=== PATIENT | female | born 1950 | race Caucasian/White ===

== ENCOUNTER 2020-10-17 18:03 | Inpatient (IN) | payer MEDICARE ==
[~2020-10-17] VITALS: Ht 160 cm; Wt 108.2 kg
[2020-10-17 18:57] LABS: BASO % 0.4 % (0.0-2.0); EOS # 0.2 (0.0-0.7); EOS % 1.8 % (0-4.0); GRAN # 7.4 (1.4-6.5); GRAN % 66.1 % (42.2-75.2); HEMOGLOBIN 10.8 g/dl (12.5-16.0); LYMPH # 2.5 (1.2-3.4); LYMPH % 22.3 % (20.0-51.0); MEAN CELL VOLUME 83 fl (80.0-100.0); MEAN CORPUSCULAR HEMOGLOBIN 25 pg (27.0-31.0); MEAN CORPUSCULAR HGB CONC 30 g/dl (33.0-37.0); MEAN PLATELET VOLUME 10.6 fl (7.4-10.4); MONO # 0.9 (0.1-0.6); MONO % 8.1 % (1.7-9.3); PLATELET COUNT 208 K/mm3 (130-400); RED BLOOD COUNT 4.32 M/mm3 (4.10-5.30); REDCELL DISTRIBUTION WIDTH-CV 17.6 % (11.5-14.5)
[2020-10-17 18:58] LABS: HEMATOCRIT 35.9 % (37.0-47.0)
[2020-10-17 19:04] LABS: ALBUMIN 3.7 gm/dL (3.5-5.0); BILIRUBIN,TOTAL 0.5 mg/dL (0.0-1.0); CALCIUM 9.1 mg/dL (8.4-10.2); CREATININE, serum 0.84 (0.52-1.25); POTASSIUM 4.1 mmol/L (3.4-5.0); TOTAL PROTEIN 6.5 gm/dL (6.4-8.2)
[2020-10-17] MEDS ORDERED: PROTONIX 40MG T40 MG PO (23:39)
[2020-10-17] MEDS ORDERED: TENORMIN 2525 MG/TAB PO (23:40)
[2020-10-17] MEDS ORDERED: GLUCOPHAGE500 MG/TAB PO (23:40)
[2020-10-18] VITALS (7 sets, daily range): BP systolic 104–138; BP diastolic 51–86; PULSE 67–75; TEMP 98.1–99.1
[2020-10-18] MEDS ORDERED: PRINIVIL10 MG PO (01:47)
--- NOTE | 2020-10-18 03:21 | NUR ---
Patient arrived medical floor room 307 around midnight from ER via wheelchair. Patient is emirati speaking and doesn't understand or speak Vietnamese. Patient A/Ox4. Patient denies chest pain, abdominal pain, SOB, headache, or diarrhea. Patient currently on oxygen 2L via NC. VS stable. Patient reports feeling nauseous and a little dizzy. PRN Zofran given per MAR. Oriented patient to the room. Covid PCR swab done and sent to lab. IVF started per APR. All scheduled meds given per APR. Call light in reach. Will continue to monitor.
[2020-10-18 03:26] LABS: PARTIAL THROMBOPLASTIN TIME > 400.0 SECONDS (26.0-37.0)
[2020-10-18 08:11] LABS: BASO % 0.4 % (0.0-2.0); EOS # 0.2 (0.0-0.7); EOS % 2.1 % (0-4.0); GRAN # 6.5 (1.4-6.5); GRAN % 67.3 % (42.2-75.2); LYMPH # 2.2 (1.2-3.4); LYMPH % 22.4 % (20.0-51.0); MEAN CORPUSCULAR HEMOGLOBIN 25 pg (27.0-31.0); MEAN CORPUSCULAR HGB CONC 28 g/dl (33.0-37.0); MEAN PLATELET VOLUME 10.8 fl (7.4-10.4); MONO # 0.7 (0.1-0.6); MONO % 6.7 % (1.7-9.3); PLATELET COUNT 161 K/mm3 (130-400); RED BLOOD COUNT 3.99 M/mm3 (4.10-5.30); REDCELL DISTRIBUTION WIDTH-CV 17.7 % (11.5-14.5)
[2020-10-18 08:29] LABS: CALCIUM 8.7 mg/dL (8.4-10.2); CREATININE, serum 0.72 (0.52-1.25)
[2020-10-18 08:39] LABS: TROPONIN-I 6 HR POST INITIAL 0.021 ng/mL (0.000-0.034)
[2020-10-18 08:49] LABS: HEMATOCRIT 35.5 % (37.0-47.0); MEAN CELL VOLUME 89 fl (80.0-100.0)
--- NOTE | 2020-10-18 10:44 | NUR ---
PT TRANSPORTED TO CT BY [facility] [employer]. STAFF AT 1030 VIA WHEELCHAIR.
--- NOTE | 2020-10-18 12:18 | NUR ---
PT BACK TO MEDICAL FLOOR FROM CT AT APPROXIMATELY 1100. HEP GTT INFUSING AT 22ML/HR TO RIGHT HAND IV, N/S INFUSING AT 75ML/HR.
--- NOTE | 2020-10-18 12:41 | NUR ---
Sw tried to call pt via phone due to covid area. Pt did not answer. Sw to try back later. Pt does not speak american that I read on notes???
--- NOTE | 2020-10-18 18:36 | NUR ---
PT REMAINS A/0X4, VSS, PT HEP GTT INFUSING AT 22ML/HR, HEPXA LEVEL PENDING FOR FURTHER ADJUSTMENT. PT 02 2L NC, THIS NURSE REVIEWED POC WITH PT. PT VERBALIZES UNDERSTANDING. ALL NEEDS MET. CALL LIGHT WITHIN REACH.
[2020-10-19 03:11] LABS: PARTIAL THROMBOPLASTIN TIME 82.9 SECONDS (26.0-37.0)
[2020-10-19 04:59] VITALS: BP 129/58; PULSE 71; TEMP 97.5
[2020-10-19 08:08] VITALS: BP 135/51; PULSE 70; TEMP 98.5
[2020-10-19 08:28] LABS: BASO % 0.3 % (0.0-2.0); EOS # 0.2 (0.0-0.7); EOS % 2.8 % (0-4.0); GRAN % 53.5 % (42.2-75.2); LYMPH # 2.6 (1.2-3.4); LYMPH % 34.5 % (20.0-51.0); MEAN CELL VOLUME 87 fl (80.0-100.0); MEAN CORPUSCULAR HGB CONC 29 g/dl (33.0-37.0); MEAN PLATELET VOLUME 11.1 fl (7.4-10.4); MONO # 0.6 (0.1-0.6); MONO % 7.7 % (1.7-9.3); PLATELET COUNT 147 K/mm3 (130-400); RED BLOOD COUNT 3.74 M/mm3 (4.10-5.30); REDCELL DISTRIBUTION WIDTH-CV 17.7 % (11.5-14.5)
[2020-10-19 08:35] LABS: HEMATOCRIT 32.4 % (37.0-47.0); HEMOGLOBIN 9.4 g/dl (12.5-16.0); MEAN CORPUSCULAR HEMOGLOBIN 25 pg (27.0-31.0)
[2020-10-19 08:37] LABS: CALCIUM 8.2 mg/dL (8.4-10.2); CREATININE, serum 0.68 (0.52-1.25); POTASSIUM 3.7 mmol/L (3.4-5.0)
[2020-10-19 11:50] VITALS: BP 104/47; PULSE 67; TEMP 98.3
--- NOTE | 2020-10-19 11:56 | NUR ---
PT HEP GTT INFUSION INCREASED 2.5ML/HR. HEP GTT INFUSING AT 22.5ML/HR TO LEFT FA INT. BOLUS ADMINISTERED ORDERED. CALL LIGHT WITHIN REACH.
[2020-10-19 16:05] VITALS: BP 110/47; PULSE 76; TEMP 98.4
--- NOTE | 2020-10-19 16:37 | NUR ---
The patient is COVID positive. SW attempted to contact the patient to complete intake. She did not answer. KAITLIN collaborated with the patient's RN and obtained a phone number for the patient's daughter, Marcia Mccall. SW attempted to contact Marcia. The number did not ring and it went straight to voicemail. The mailbox was full. KAITLIN then contacted another number on file for the patient. The patient's granddaughter, Niurka (ph#[phone]), answered the phone. Niurka reports that she will notify her mother and aunt that this SW is trying to get in contact with them. KAITLIN then received a call from the patient's daughter, Marcia. Marcia reports that her phone broke today. She states that she will be coming up to [place] tomorrow and will have her 's cell phone on her ph#[phone]. She states that the patient lives in [place] with her , Sedrick (ph#[phone]), and grandson. Sedrick is also hungarian speaking. She reports that the patient is independent with ADLs and does not have any DME. The patient does not have a PCP here. Mracia reports that the patient has been going back and forth from staying in [place] and [place]. She states that she is working on getting the patient's insurance plan switched to a [place] Medicare. KAITLIN provided Marcia with [facility] [address] phone number to also assist with switching the plan. Marcia reports that the patient is to Sedrick and that they have six children: herself, Dav, Leni, Geneva, Jessica, and Sedrick. The patient is currently requiring 2 liters of oxygen. SW to continue to monitor. *Discharge plan: home with family support*
--- NOTE | 2020-10-19 18:10 | NUR ---
PT C/O NAUSEA, MEDICATION ADMINISTERED ORDERED.
--- NOTE | 2020-10-19 18:10 | NUR ---
PT REMAINS A/OX4, 02 3L NC, PT REMAINS SOA ON EXERTION, PT EXPRESSES PAIN TO EPIGASTRIC REGION 08/21. THIS NURSE REVIWED POC WITH PT. PT VERBALIZES UNDERSTANDING. ALL QUESTIONS ANSWERED. ALL NEEDS MET.
[2020-10-19 20:06] VITALS: BP 120/50; PULSE 85; TEMP 98.7
[2020-10-19 23:55] VITALS: BP 168/67; PULSE 79; TEMP 99.4
[2020-10-20 08:38] VITALS: BP 133/59; PULSE 71; TEMP 98.1
[2020-10-20 11:29] LABS: INR 1.4 (0.8-3.0); PROTHROMBIN TIME 15.6 SECONDS (9.7-12.8)
[2020-10-20 11:54] VITALS: BP 123/49; PULSE 69; TEMP 98.5
[2020-10-20 16:30] LABS: MEAN CELL VOLUME 87 fl (80.0-100.0); MEAN CORPUSCULAR HGB CONC 29 g/dl (33.0-37.0); MEAN PLATELET VOLUME 10.7 fl (7.4-10.4); PLATELET COUNT 172 K/mm3 (130-400); RED BLOOD COUNT 3.64 M/mm3 (4.10-5.30); REDCELL DISTRIBUTION WIDTH-CV 17.2 % (11.5-14.5)
[2020-10-20 16:33] LABS: HEMATOCRIT 31.6 % (37.0-47.0); HEMOGLOBIN 9.2 g/dl (12.5-16.0); MEAN CORPUSCULAR HEMOGLOBIN 25 pg (27.0-31.0)
[2020-10-20 16:43] LABS: CALCIUM 8.5 mg/dL (8.4-10.2); CREATININE, serum 0.67 (0.52-1.25); POTASSIUM 3.7 mmol/L (3.4-5.0)
[2020-10-20 16:52] VITALS: BP 126/56; PULSE 63; TEMP 98.8
[2020-10-20 19:34] VITALS: BP 103/60; PULSE 68; TEMP 98.7
--- NOTE | 2020-10-20 20:55 | NUR ---
HEP GTT COMMENCED AT 2019 TO [facility]. NEXT HEPXA DRAW 0000 10/21/20. PT EXPRESSES NO ADDITIONAL NEEDS AT THIS TIME.
[2020-10-20 23:55] VITALS: BP 137/59; PULSE 69; TEMP 98.5
--- NOTE | 2020-10-21 01:13 | NUR ---
PT HEP GTT INCREASED 2.5ML/HR, NOW INFUSING AT 22ML/HR, BOLUS ADMINISTERED ORDERED. NEXT HEPXA 10/21/20 0600. CALL LIGHT WITHIN REACH.
[2020-10-21 04:00] VITALS: BP 145/60; PULSE 73; TEMP 98.3
[2020-10-21 07:06] LABS: MEAN CELL VOLUME 84 fl (80.0-100.0); MEAN CORPUSCULAR HGB CONC 29 g/dl (33.0-37.0); PLATELET COUNT 180 K/mm3 (130-400); REDCELL DISTRIBUTION WIDTH-CV 17.2 % (11.5-14.5)
[2020-10-21 07:14] LABS: HEMATOCRIT 31.9 % (37.0-47.0); HEMOGLOBIN 9.3 g/dl (12.5-16.0); MEAN CORPUSCULAR HEMOGLOBIN 24 pg (27.0-31.0)
[2020-10-21 07:15] LABS: INR 1.7 (0.8-3.0); PROTHROMBIN TIME 18.4 SECONDS (9.7-12.8)
[2020-10-21 07:23] LABS: CALCIUM 8.5 mg/dL (8.4-10.2); CREATININE, serum 0.8 (0.52-1.25); POTASSIUM 3.5 mmol/L (3.4-5.0)
[2020-10-21 08:31] VITALS: BP 158/63; PULSE 76; TEMP 98.5
--- NOTE | 2020-10-21 08:42 | NUR ---
PT IS HAVING A ROUGH TIME WITH TRANSLATION. THE RN IS USING GOOGLE TRANSLATE FOR SMALL INTERACTIONS AND THE SEARCH OPTIMIZATION ANALYST LINE FOR IMPORTANT INFORMATION. IT SEEMS THAT SHE IS FRUSTRATED.
[2020-10-21 13:20] VITALS: BP 107/49; PULSE 66; TEMP 98.3
[2020-10-21 15:11] LABS: PARTIAL THROMBOPLASTIN TIME 34.3 SECONDS (26.0-37.0)
--- NOTE | 2020-10-21 15:51 | NUR ---
KAITLIN left a message with financial counseling an admissions following up on the Medicare that is on the patient's account. KAITLIN contacted the patient's daughter, Marcia, at [phone] to follow up about insurance and primary care. KAITLIN discussed [facility] in [place] and . Marcia was open to get the patient set up at either clinic. KAITLIN then received an email back from financial counseling and admissions. They both confirm that the patient's Medicare plan on her account is active. KAITLIN contacted the [facility] in . The human resources receptionist reports that the patient has already been established at the [facility] in [place] and her provider is Vesta Jacobs. KAITLIN contacted the [facility] in [place] and secured the patient and appointment on 11/05 at 1040. KAITLIN informed the community development manager of the appointment. KAITLIN will need to fax the patient's records to [facility] in [place]. KAITLIN contacted and updated the patient's daughter, Marcia. KAITLIN updated the hospitalist. The hospitalist reports that the patient is going to need INR checks and inquired if [facility] can do this. KAITLIN contacted DALLAS Gonzalez with Vesta Jacobs at [facility]. Lisa reports that they are not able to do INR checks. She states that they are able to provide the patient with a 3 month supply of Xalerto for $10 through their pharmacy at the [facility], if this would work for the patient. KAITLIN to inform the clinical team.
[2020-10-21 16:30] VITALS: BP 124/55; PULSE 67; TEMP 98.6
[2020-10-21 21:33] VITALS: BP 131/78; PULSE 72; TEMP 98.5
--- NOTE | 2020-10-22 00:28 | NUR ---
PT ALERT AND ORIENTED IN ROOM. PT ABLE TO AMBULATE INDEPENDENTLY. PT EXPRESSED FEELING NAUSEA, PRN ANTI-EMETIC MEDICATION GIVEN PER ORDERS. PT DENIES PAIN AT THIS TIME. PT PICC LINE FLUSHED WITH BLOOD RETURN NOTED. PT DENIES OTHER NEEDS AT THIS TIME. PT CALL LIGHT WITHIN REACH.
[2020-10-22 00:45] VITALS: BP 136/59; PULSE 64; TEMP 98.7
[2020-10-22 03:56] VITALS: BP 139/69; PULSE 66; TEMP 98.5
--- NOTE | 2020-10-22 04:27 | NUR ---
PT CONTINUING ON PLAN OF CARE. PT DENIED PAIN DURING SHIFT AND VITAL SIGNS REMAINED STABLE. PT INDEPENDENT IN ROOM. PT HAD ONE BOUT OF NAUSEA AT BEGINNING OF SHIFT, MANAGED WITH PRN ANTI-EMETIC PER ORDERS. NO SIGNIFICANT CHANGES NOTED THIS SHIFT. PT FREE FROM INJURY THIS SHIFT.
[2020-10-22 07:46] LABS: INR 2.1 (0.8-3.0); PROTHROMBIN TIME 22.9 SECONDS (9.7-12.8)
[2020-10-22 07:58] LABS: CALCIUM 8.5 mg/dL (8.4-10.2); CREATININE, serum 0.79 (0.52-1.25); POTASSIUM 3.7 mmol/L (3.4-5.0)
[2020-10-22 09:22] VITALS: BP 139/56; PULSE 77; TEMP 98.8
--- NOTE | 2020-10-22 09:55 | NUR ---
PT DENIES NAUSEA AT THIS TIME. DENIES ANY OTHER COMPLAINTS. WILL CONTINUE TO MONITOR PATIENT.
[2020-10-22 12:42] VITALS: BP 139/59; PULSE 66; TEMP 98.6
[2020-10-22] MEDS ORDERED: XARELTO STARTER20 MG PO (14:00)
[2020-10-22] MEDS ORDERED: CARAFATE 1GM1 G PO (14:05)
--- NOTE | 2020-10-22 15:55 | NUR ---
KAITLIN contacted [facility] and [facility] to inquire if they could accept the patient, if she is going to need the continued INR checks. Vandana, at [facility], reports that Dr. Iraida Guzman could accept the patient. Vandana reports that they are not able to provide continued assistance with the Xarelto though. KAITLIN notified the hospitalist and the pharmacist about [facility] program for Xarelto and on Dr. Iraida Guzman's acceptance. The hospitalist and pharmacist are able to switch the patient's treatment to Xarelto and think pursuing with [facility] and their Xarelto program would be in best interest for the patient. Due to the patient's first appointment not being until 11/05, KAITLIN provided the patient with a Xarelto Free 30-day supply discount card. KAITLIN contacted the patient's preferred pharmacy, [facility], and provided the human resources receptionist with the card's BIN and ID number. The human resources receptionist reports that the card is valid and she has applied it to the patient's account. She reports that the total for her other prescription is $11.12. An exercise oximetry was also ordered and the patient qualified for 2 liters of oxygen. KAITLIN contacted and faxed/emailed the patient's oxygen order to Marcia at [facility]. KAITLIN contacted the patient's daughter, Marcia, to update on the above. Marcai's answered the phone and states that Marcia is driving, but he is with Marcia. KAITLIN updated Marcia and her on the above. They were in agreement to the plan. Marcia reports that they will head to [facility] before 1700 and molded goods spot picker the patient's oxygen before coming to pick the patient up. KAITLIN updated the patient's RN. The patient is to discharge back home with her family today, 10/22. KAITLIN faxed the patient's records and d/c orders to [facility] in [place]. No additional needs at this time.
== END 2020-10-22 16:40 | disposition home or self-care (01) | DRG 175 ==
LOC: EDBD 18:03 → COL.ER 18:03 → MEDICAL 22:32
PROVIDERS: Internal Medicine; Personal Emergency Response Attendant; Student in an Organized Health Care Education/Training Program; ADMIT Internal Medicine
PROC: 02HV33Z Insertion of Infusion Device into Superior Vena Cava, Percutaneous Approach (ICD-10-PCS; principal; 2020-10-20)
DX: I26.99 Other pulmonary embolism without acute cor pulmonale (principal); J96.01 Acute respiratory failure with hypoxia; R65.10 Systemic inflammatory response syndrome (SIRS) of non-infectious origin without acute organ dysfunction; I82.492 Acute embolism and thrombosis of other specified deep vein of left lower extremity; E11.9 Type 2 diabetes mellitus without complications; K21.9 Gastro-esophageal reflux disease without esophagitis; Z20.822 Contact with and (suspected) exposure to COVID-19; I10 Essential (primary) hypertension; R10.9 Unspecified abdominal pain; E66.9 Obesity, unspecified; E11.65 Type 2 diabetes mellitus with hyperglycemia; B96.20 Unspecified Escherichia coli [E. coli] as the cause of diseases classified elsewhere; Z90.710 Acquired absence of both cervix and uterus; Z79.84 Long term (current) use of oral hypoglycemic drugs
CPT/HCPCS: 99223-AI; 99232-AI; 99233-AI; 99239; C1751; C9113; J0696; J1644; J1650; J1815; J2270; J2405; J7030; Q9967

== ENCOUNTER → 2020-11-22 | Outpatient (CLI) | payer MEDICARE ==
[~2020-11-22] MED LIST: CARAFATE 1GM1 G PO; GLUCOPHAGE500 MG/TAB PO; PRINIVIL10 MG PO; PROTONIX 40MG T40 MG PO; TENORMIN 2525 MG/TAB PO; XARELTO STARTER20 MG PO
== END ==
LOC: COL.RAD 13:37
DX: R06.02 Shortness of breath (principal)

== ENCOUNTER → 2020-11-24 | Outpatient (CLI) | payer MEDICARE | LOC: COL.RAD 15:27 | DX: M17.12 Unilateral primary osteoarthritis, left knee (principal); R06.02 Shortness of breath ==

== ENCOUNTER 2021-02-05 13:51 | Emergency (ER) | payer MEDICARE ==
[~2021-02-05] VITALS: Ht 160 cm; Wt 115.5 kg
[2021-02-05 14:01] VITALS: TEMP 98
[2021-02-05 14:52] LABS: BASO % 0.2 % (0.0-2.0); EOS # 0.2 K/mm3 (0.0-0.7); EOS % 1.6 % (0.0-4.0); GRAN # 8.7 K/mm3 (1.4-6.5); GRAN % 69.5 % (42.2-75.2); LYMPH # 2.9 K/mm3 (1.2-3.4); LYMPH % 22.8 % (20.0-51.0); MEAN CELL VOLUME 79 fl (80.0-100.0); MEAN CORPUSCULAR HGB CONC 30 g/dl (33.0-37.0); MEAN PLATELET VOLUME 10.5 fl (7.4-10.4); MONO # 0.7 K/mm3 (0.1-0.6); MONO % 5.2 % (1.7-9.3); PLATELET COUNT 334 K/mm3 (130-400); RED BLOOD COUNT 4.09 M/mm3 (4.10-5.30); REDCELL DISTRIBUTION WIDTH-CV 17.1 % (11.5-14.5)
[2021-02-05 14:53] LABS: HEMATOCRIT 32.2 % (37.0-47.0); HEMOGLOBIN 9.6 g/dl (12.5-16.0); MEAN CORPUSCULAR HEMOGLOBIN 23 pg (27-31)
[2021-02-05 15:09] LABS: ALBUMIN 3.2 gm/dL (3.4-4.8); CALCIUM 9.3 mg/dL (8.4-10.2); CREATININE, serum 0.78 mg/dL (0.57-1.11); POTASSIUM 3.3 mmol/L (3.5-4.5); TOTAL PROTEIN 6.7 gm/dL (6.2-8.1)
[2021-02-05 15:19] LABS: BILIRUBIN,TOTAL 0.4 mg/dL (0.2-1.2)
[2021-02-05] MEDS ORDERED: OMNICEF 300MG300 MG PO (15:47)
[2021-02-05 16:07] LABS: COLLECTION METHOD CLEAN CATCH
[2021-02-05 16:47] LABS: MUCOUS Present (NOT PRESENT); URINE BACTERIA Rare /hpf (NONE SEEN); URINE RBC >50 /hpf (0-2)
[2021-02-05 16:50] LABS: PH 6 (5-8); URINE APPEARANCE Cloudy (CLEAR/HAZY); URINE COLOR Red (YELLOW); URINE GLUCOSE Negative (NEGATIVE); URINE PROTEIN(semi-quant) 1+ (NEGATIVE)
[2021-02-05 16:51] LABS: URINE BILIRUBIN Negative (NEGATIVE); URINE BLOOD 3+ (NEGATIVE); URINE KETONE Negative (NEGATIVE); URINE LEUKOCYTE ESTERASE 1+ (NEGATIVE); URINE NITRATE Negative (NEGATIVE); URINE UROBILINOGEN Negative (NEGATIVE)
[2021-02-05 17:30] VITALS: BP 119/75; PULSE 66
== END 2021-02-05 17:37 | disposition home or self-care (01) ==
LOC: COL.ER 13:51
PROVIDERS: Family Medicine
DX: N39.0 Urinary tract infection, site not specified (principal); E11.9 Type 2 diabetes mellitus without complications; I26.99 Other pulmonary embolism without acute cor pulmonale; Z79.01 Long term (current) use of anticoagulants; Z79.84 Long term (current) use of oral hypoglycemic drugs
CPT/HCPCS: J0696; J2405; J7120

== ENCOUNTER 2021-02-12 14:33 | Emergency (ER) | payer MEDICARE ==
[~2021-02-12] VITALS: Ht 160 cm; Wt 112.3 kg
[~2021-02-12 14:33] MED LIST changes: +OMNICEF 300MG300 MG PO
[2021-02-12 14:43] VITALS: TEMP 98.5
[2021-02-12 15:22] LABS: BASO % 0.4 % (0.0-2.0); EOS # 0.2 K/mm3 (0.0-0.7); GRAN # 6.5 K/mm3 (1.4-6.5); GRAN % 64.1 % (42.2-75.2); LYMPH # 2.6 K/mm3 (1.2-3.4); MEAN CELL VOLUME 81 fl (80.0-100.0); MEAN CORPUSCULAR HGB CONC 29 g/dl (33.0-37.0); MEAN PLATELET VOLUME 10.7 fl (7.4-10.4); MONO # 0.7 K/mm3 (0.1-0.6); MONO % 6.7 % (1.7-9.3); PLATELET COUNT 333 K/mm3 (130-400); RED BLOOD COUNT 4.08 M/mm3 (4.10-5.30); REDCELL DISTRIBUTION WIDTH-CV 17.2 % (11.5-14.5)
[2021-02-12 15:23] LABS: HEMOGLOBIN 9.7 g/dl (12.5-16.0); MEAN CORPUSCULAR HEMOGLOBIN 24 pg (27-31)
[2021-02-12 15:41] LABS: ALBUMIN 3.2 gm/dL (3.4-4.8); BILIRUBIN,TOTAL 0.6 mg/dL (0.2-1.2); CALCIUM 9.2 mg/dL (8.4-10.2); CREATININE, serum 0.77 mg/dL (0.57-1.11); POTASSIUM 3.9 mmol/L (3.5-4.5); TOTAL PROTEIN 6.7 gm/dL (6.2-8.1)
[2021-02-12 17:34] LABS: COLLECTION METHOD CLEAN CATCH
[2021-02-12 17:43] LABS: PH 5 (5-8); SQUAMOUS EPITHELIAL None Seen /hpf (0-10); URINE APPEARANCE Clear (CLEAR/HAZY); URINE BACTERIA None Seen /hpf (NONE SEEN); URINE BILIRUBIN Negative (NEGATIVE); URINE BLOOD Negative (NEGATIVE); URINE COLOR Straw (YELLOW); URINE GLUCOSE Negative (NEGATIVE); URINE KETONE Negative (NEGATIVE); URINE LEUKOCYTE ESTERASE Negative (NEGATIVE); URINE NITRATE Negative (NEGATIVE); URINE PROTEIN(semi-quant) Negative (NEGATIVE); URINE RBC 0-2 /hpf (0-2); URINE UROBILINOGEN Negative (NEGATIVE)
[2021-02-12 18:00] VITALS: BP 106/52; PULSE 73
[2021-02-12] MEDS ORDERED: PRIL40 PO (18:11)
[2021-02-12] MEDS ORDERED: ZOFRAN ODT4 MG PO (18:12)
== END 2021-02-12 18:22 | disposition home or self-care (01) ==
LOC: COL.ER 14:33
PROVIDERS: Physician Assistant
DX: R10.12 Left upper quadrant pain (principal); E11.9 Type 2 diabetes mellitus without complications; I10 Essential (primary) hypertension; E66.9 Obesity, unspecified; Z87.448 Personal history of other diseases of urinary system; Z90.710 Acquired absence of both cervix and uterus; Z79.84 Long term (current) use of oral hypoglycemic drugs; Z79.899 Other long term (current) drug therapy
CPT/HCPCS: J2270; J2405; J7030; Q9967

== ENCOUNTER 2021-02-14 09:13 | Emergency (ER) | payer MEDICARE ==
[~2021-02-14] VITALS: Ht 160 cm; Wt 118.2 kg
[~2021-02-14 09:13] MED LIST changes: +PRIL40 PO; +ZOFRAN ODT4 MG PO
[2021-02-14 09:23] VITALS: TEMP 98.2
[2021-02-14 10:19] LABS: BASO % 0.4 % (0.0-2.0); EOS # 0.2 K/mm3 (0.0-0.7); EOS % 2.1 % (0.0-4.0); GRAN # 5.8 K/mm3 (1.4-6.5); LYMPH # 1.8 K/mm3 (1.2-3.4); LYMPH % 21.7 % (20.0-51.0); MEAN CELL VOLUME 79 fl (80.0-100.0); MEAN CORPUSCULAR HGB CONC 29 g/dl (33.0-37.0); MEAN PLATELET VOLUME 10.7 fl (7.4-10.4); MONO # 0.5 K/mm3 (0.1-0.6); MONO % 6.2 % (1.7-9.3); PLATELET COUNT 310 K/mm3 (130-400); RED BLOOD COUNT 4.01 M/mm3 (4.10-5.30)
[2021-02-14 10:21] LABS: HEMATOCRIT 31.7 % (37.0-47.0); HEMOGLOBIN 9.3 g/dl (12.5-16.0); MEAN CORPUSCULAR HEMOGLOBIN 23 pg (27-31)
[2021-02-14 10:33] LABS: BILIRUBIN,TOTAL 0.6 mg/dL (0.2-1.2); CALCIUM 8.7 mg/dL (8.4-10.2); CREATININE, serum 0.75 mg/dL (0.57-1.11); POTASSIUM 3.5 mmol/L (3.5-4.5); TOTAL PROTEIN 6.4 gm/dL (6.2-8.1)
[2021-02-14] MEDS ORDERED: AMOXICILLIN 8751 TAB PO (11:56)
[2021-02-14] MEDS ORDERED: NORCO 325 MG-51 TAB PO (11:56)
[2021-02-14 12:22] VITALS: BP 132/66; PULSE 61
== END 2021-02-14 12:22 | disposition home or self-care (01) ==
LOC: COL.ER 09:13
PROVIDERS: Emergency Medicine
DX: R10.9 Unspecified abdominal pain (principal); R19.7 Diarrhea, unspecified; I10 Essential (primary) hypertension; E11.9 Type 2 diabetes mellitus without complications; K21.9 Gastro-esophageal reflux disease without esophagitis; Z20.822 Contact with and (suspected) exposure to COVID-19; Z90.710 Acquired absence of both cervix and uterus; Z79.899 Other long term (current) drug therapy; Z79.84 Long term (current) use of oral hypoglycemic drugs
CPT/HCPCS: J2270; J2405

== ENCOUNTER 2021-02-19 19:40 | Emergency (ER) | payer MEDICARE ==
[~2021-02-19] VITALS: Ht 160 cm; Wt 113.6 kg
[~2021-02-19 19:40] MED LIST changes: +AMOXICILLIN 8751 TAB PO; +NORCO 325 MG-51 TAB PO
[2021-02-19 19:44] VITALS: TEMP 98.2
[2021-02-19 20:46] LABS: BASO % 0.2 % (0.0-2.0); EOS # 0.2 K/mm3 (0.0-0.7); EOS % 1.5 % (0.0-4.0); GRAN # 9.5 K/mm3 (1.4-6.5); GRAN % 73.8 % (42.2-75.2); LYMPH # 2.4 K/mm3 (1.2-3.4); LYMPH % 18.4 % (20.0-51.0); MEAN CELL VOLUME 79 fl (80.0-100.0); MEAN CORPUSCULAR HGB CONC 30 g/dl (33.0-37.0); MEAN PLATELET VOLUME 10.9 fl (7.4-10.4); MONO # 0.8 K/mm3 (0.1-0.6); MONO % 5.8 % (1.7-9.3); PLATELET COUNT 344 K/mm3 (130-400); RED BLOOD COUNT 4.12 M/mm3 (4.10-5.30); REDCELL DISTRIBUTION WIDTH-CV 16.9 % (11.5-14.5)
[2021-02-19 20:50] LABS: HEMATOCRIT 32.5 % (37.0-47.0); HEMOGLOBIN 9.6 g/dl (12.5-16.0); MEAN CORPUSCULAR HEMOGLOBIN 23 pg (27-31)
[2021-02-19 21:16] LABS: ALBUMIN 3.3 gm/dL (3.4-4.8); BILIRUBIN,TOTAL 0.4 mg/dL (0.2-1.2); CALCIUM 9.5 mg/dL (8.4-10.2); CREATININE, serum 0.75 mg/dL (0.57-1.11); POTASSIUM 3.6 mmol/L (3.5-4.5); TOTAL PROTEIN 6.8 gm/dL (6.2-8.1)
[2021-02-19 21:46] VITALS: BP 131/65; PULSE 79
== END 2021-02-19 21:53 | disposition home or self-care (01) ==
LOC: COL.ER 19:40
PROVIDERS: Student in an Organized Health Care Education/Training Program
DX: R10.12 Left upper quadrant pain (principal); E11.9 Type 2 diabetes mellitus without complications; Z86.711 Personal history of pulmonary embolism; Z79.01 Long term (current) use of anticoagulants; Z79.84 Long term (current) use of oral hypoglycemic drugs
CPT/HCPCS: J1170; J2405; J7030; Q9967

== ENCOUNTER 2021-02-26 06:07 | Emergency (ER) | payer MEDICARE ==
[~2021-02-26] VITALS: Ht 157.5 cm; Wt 104.5 kg
[2021-02-26 06:21] VITALS: TEMP 97.9
[2021-02-26 06:33] LABS: COLLECTION METHOD CLEAN CATCH
[2021-02-26 06:44] LABS: MUCOUS Present (NOT PRESENT); PH 5 (5-8); SQUAMOUS EPITHELIAL None Seen /hpf (0-10); URINE APPEARANCE Turbid (CLEAR/HAZY); URINE BACTERIA None Seen /hpf (NONE SEEN); URINE BILIRUBIN Negative (NEGATIVE); URINE BLOOD 3+ (NEGATIVE); URINE COLOR Amber (YELLOW); URINE GLUCOSE Negative (NEGATIVE); URINE KETONE Negative (NEGATIVE); URINE LEUKOCYTE ESTERASE 2+ (NEGATIVE); URINE NITRATE Negative (NEGATIVE); URINE PROTEIN(semi-quant) 2+ (NEGATIVE); URINE RBC >50 /hpf (0-2); URINE UROBILINOGEN Negative (NEGATIVE)
[2021-02-26] MEDS ORDERED: CEPHALEXIN500 M1 PO (07:00)
[2021-02-26] MEDS ORDERED: BENTYL 10MG10 MG/CAP PO (07:00)
[2021-02-26] MEDS ORDERED: LIDODERM 5% PATC1 EA TP (07:01)
[2021-02-26 07:31] LABS: BASO % 0.3 % (0.0-2.0); EOS # 0.3 K/mm3 (0.0-0.7); GRAN # 5.9 K/mm3 (1.4-6.5); GRAN % 65.9 % (42.2-75.2); LYMPH # 2.1 K/mm3 (1.2-3.4); LYMPH % 23.8 % (20.0-51.0); MEAN CELL VOLUME 79 fl (80.0-100.0); MEAN CORPUSCULAR HGB CONC 30 g/dl (33.0-37.0); MEAN PLATELET VOLUME 10.6 fl (7.4-10.4); MONO # 0.6 K/mm3 (0.1-0.6); MONO % 6.7 % (1.7-9.3); PLATELET COUNT 304 K/mm3 (130-400); RED BLOOD COUNT 4.01 M/mm3 (4.10-5.30); REDCELL DISTRIBUTION WIDTH-CV 16.7 % (11.5-14.5)
[2021-02-26 07:33] LABS: HEMATOCRIT 31.5 % (37.0-47.0); HEMOGLOBIN 9.4 g/dl (12.5-16.0); MEAN CORPUSCULAR HEMOGLOBIN 23 pg (27-31)
[2021-02-26 07:42] LABS: ALBUMIN 3.1 gm/dL (3.4-4.8); BILIRUBIN,TOTAL 0.4 mg/dL (0.2-1.2); CREATININE, serum 0.76 mg/dL (0.57-1.11); POTASSIUM 3.7 mmol/L (3.5-4.5); TOTAL PROTEIN 6.4 gm/dL (6.2-8.1)
[2021-02-26 07:59] VITALS: BP 117/69; PULSE 65
== END 2021-02-26 08:00 | disposition home or self-care (01) ==
LOC: COL.ER 06:07
PROVIDERS: Emergency Medicine
DX: N39.0 Urinary tract infection, site not specified (principal); I10 Essential (primary) hypertension; E11.9 Type 2 diabetes mellitus without complications; K21.9 Gastro-esophageal reflux disease without esophagitis; Z79.84 Long term (current) use of oral hypoglycemic drugs; Z79.899 Other long term (current) drug therapy

== ENCOUNTER 2021-04-09 08:20 | Emergency (ER) | payer MEDICARE ==
[~2021-04-09] VITALS: Ht 165.1 cm; Wt 104.5 kg
[~2021-04-09 08:20] MED LIST changes: +BENTYL 10MG10 MG/CAP PO; +CEPHALEXIN500 M1 PO; +LIDODERM 5% PATC1 EA TP
[2021-04-09 08:28] VITALS: TEMP 98.6
[2021-04-09 08:40] LABS: COLLECTION METHOD CLEAN CATCH
[2021-04-09 08:48] LABS: MUCOUS Present (NOT PRESENT); PH 5 (5-8); URINE APPEARANCE Hazy (CLEAR/HAZY); URINE BACTERIA Rare /hpf (NONE SEEN); URINE BILIRUBIN Negative (NEGATIVE); URINE BLOOD Negative (NEGATIVE); URINE COLOR Yellow (YELLOW); URINE GLUCOSE Negative (NEGATIVE); URINE KETONE Negative (NEGATIVE); URINE LEUKOCYTE ESTERASE Negative (NEGATIVE); URINE NITRATE Negative (NEGATIVE); URINE PROTEIN(semi-quant) Negative (NEGATIVE); URINE RBC 0-2 /hpf (0-2); URINE UROBILINOGEN Negative (NEGATIVE)
[2021-04-09 09:25] LABS: ALBUMIN 3.6 gm/dL (3.4-4.8); BILIRUBIN,TOTAL 0.4 mg/dL (0.2-1.2); CALCIUM 9.2 mg/dL (8.4-10.2); CREATININE, serum 0.8 mg/dL (0.57-1.11); POTASSIUM 4.1 mmol/L (3.5-4.5); TOTAL PROTEIN 6.6 gm/dL (6.2-8.1)
[2021-04-09 09:51] LABS: BASO % 0.3 % (0.0-2.0); EOS # 0.2 K/mm3 (0.0-0.7); EOS % 1.9 % (0.0-4.0); GRAN % 79.9 % (42.2-75.2); LYMPH # 1.1 K/mm3 (1.2-3.4); LYMPH % 11.2 % (20.0-51.0); MEAN CELL VOLUME 78 fl (80.0-100.0); MEAN CORPUSCULAR HGB CONC 30 g/dl (33.0-37.0); MEAN PLATELET VOLUME 10.3 fl (7.4-10.4); MONO # 0.6 K/mm3 (0.1-0.6); MONO % 6.3 % (1.7-9.3); PLATELET COUNT 285 K/mm3 (130-400); RED BLOOD COUNT 4.18 M/mm3 (4.10-5.30); REDCELL DISTRIBUTION WIDTH-CV 16.4 % (11.5-14.5)
[2021-04-09 09:54] LABS: HEMATOCRIT 32.4 % (37.0-47.0); HEMOGLOBIN 9.7 g/dl (12.5-16.0); MEAN CORPUSCULAR HEMOGLOBIN 23 pg (27-31)
[2021-04-09 11:06] VITALS: BP 131/57; PULSE 86
[2021-04-09] MEDS ORDERED: AMOXICILLIN 8751 TAB PO (11:15)
[2021-04-09] MEDS ORDERED: ROXICODONE 55 MG/TAB PO (11:15)
[2021-04-09] MEDS ORDERED: ZOFRAN ODT4 MG PO (11:15)
== END 2021-04-09 11:29 | disposition home or self-care (01) ==
LOC: COL.ER 08:20
PROVIDERS: Student in an Organized Health Care Education/Training Program
DX: K57.92 Diverticulitis of intestine, part unspecified, without perforation or abscess without bleeding (principal); Z86.711 Personal history of pulmonary embolism; Z79.01 Long term (current) use of anticoagulants
CPT/HCPCS: J1170; Q9967

== ENCOUNTER 2021-04-12 21:22 | Emergency (ER) | payer MEDICARE ==
[~2021-04-12] VITALS: Ht 160 cm; Wt 109.1 kg
[~2021-04-12 21:22] MED LIST changes: +ROXICODONE 55 MG/TAB PO
[2021-04-12 21:37] VITALS: TEMP 97.9
[2021-04-12 21:53] LABS: COLLECTION METHOD CLEAN CATCH
[2021-04-12 21:57] LABS: BASO % 0.3 % (0.0-2.0); EOS # 0.3 K/mm3 (0.0-0.7); EOS % 3.8 % (0.0-4.0); GRAN # 5.7 K/mm3 (1.4-6.5); GRAN % 64.7 % (42.2-75.2); HEMATOCRIT 30.5 % (37.0-47.0); HEMOGLOBIN 9.2 g/dl (12.5-16.0); LYMPH # 2.1 K/mm3 (1.2-3.4); LYMPH % 23.6 % (20.0-51.0); MEAN CELL VOLUME 77 fl (80.0-100.0); MEAN CORPUSCULAR HEMOGLOBIN 23 pg (27-31); MEAN CORPUSCULAR HGB CONC 30 g/dl (33.0-37.0); MEAN PLATELET VOLUME 10.4 fl (7.4-10.4); MONO # 0.6 K/mm3 (0.1-0.6); MONO % 7.1 % (1.7-9.3); PLATELET COUNT 304 K/mm3 (130-400); RED BLOOD COUNT 3.97 M/mm3 (4.10-5.30); REDCELL DISTRIBUTION WIDTH-CV 16.2 % (11.5-14.5)
[2021-04-12 22:00] LABS: PH 5 (5-8); SQUAMOUS EPITHELIAL 0-2 /hpf (0-10); URINE APPEARANCE Turbid (CLEAR/HAZY); URINE BACTERIA None Seen /hpf (NONE SEEN); URINE BILIRUBIN Negative (NEGATIVE); URINE BLOOD Negative (NEGATIVE); URINE COLOR Amber (YELLOW); URINE GLUCOSE Negative (NEGATIVE); URINE KETONE Trace (NEGATIVE); URINE LEUKOCYTE ESTERASE Negative (NEGATIVE); URINE NITRATE Negative (NEGATIVE); URINE PROTEIN(semi-quant) Negative (NEGATIVE); URINE RBC 0-2 /hpf (0-2); URINE UROBILINOGEN Negative (NEGATIVE)
[2021-04-12 22:44] LABS: ALBUMIN 3.5 gm/dL (3.4-4.8); BILIRUBIN,TOTAL 0.3 mg/dL (0.2-1.2); CALCIUM 9.6 mg/dL (8.4-10.2); CREATININE, serum 1.38 mg/dL (0.57-1.11); POTASSIUM 3.3 mmol/L (3.5-4.5)
[2021-04-13 01:41] VITALS: BP 133/67; PULSE 71
[2021-04-13] MEDS ORDERED: ZOFRAN ODT4 MG PO (01:47)
[2021-04-13] MEDS ORDERED: NORCO 325 MG-51 TAB PO (01:47)
== END 2021-04-13 01:54 | disposition home or self-care (01) ==
LOC: COL.ER 21:22
PROVIDERS: Emergency Medicine
DX: N17.9 Acute kidney failure, unspecified (principal); R10.32 Left lower quadrant pain; E87.6 Hypokalemia; D64.9 Anemia, unspecified
CPT/HCPCS: J1790; J1956; J2270; J2405; J2765; J7030; Q9967

== ENCOUNTER → 2021-05-11 | Outpatient (CLI) | payer MEDICARE | LOC: COL.RAD 08:00 | DX: R10.12 Left upper quadrant pain (principal) | CPT/HCPCS: A9541 ==

== ENCOUNTER 2021-06-17 07:51 | Day surgery (SDC) | payer MEDICARE, MEDICAID ==
[~2021-06-17] VITALS: Ht 160 cm; Wt 100.9 kg
[2021-06-17 09:10] VITALS: BP 134/71; PULSE 64; TEMP 97.3
[2021-06-17] MEDS ORDERED: FARXIGA10 PO (09:21)
[2021-06-17] MEDS ORDERED: ENTRESTO 49 MG1 EACH PO (09:23)
[2021-06-17] MEDS ORDERED: XARELTO20 MG PO (09:24)
[2021-06-17 10:45] VITALS: BP 118/77; PULSE 64; TEMP 98
[2021-06-17 11:00] VITALS: BP 98/57; PULSE 63
--- NOTE | 2021-06-17 11:25 | NUR ---
Pt returned via cart to recliner in bay. Son and spouse present. VSS-see flowsheet. Refused food or drink. DC teaching completed with pts son to translate. All verbalized understanding. Pts iv removed with pressure dressing applied. Pt taken via wheelchair to private vehicle for dc home with to drive.
[2021-06-17 17:58] VITALS: BP 132/56; PULSE 85
== END 2021-06-17 11:25 | disposition home or self-care (01) ==
LOC: SDCO 07:51
DX: K57.30 Diverticulosis of large intestine without perforation or abscess without bleeding (principal); K64.1 Second degree hemorrhoids; K92.1 Melena
CPT/HCPCS: J2704; J7030

== ENCOUNTER → 2021-07-13 | Outpatient (CLI) | payer MEDICARE, MEDICAID ==
[~2021-07-13] MED LIST changes: +ENTRESTO 49 MG1 EACH PO; +FARXIGA10 PO; +XARELTO20 MG PO
[2021-07-13 11:32] LABS: HEMATOCRIT 40.2 % (37.0-47.0); HEMOGLOBIN 11.6 g/dl (12.5-16.0); MEAN CELL VOLUME 81 fl (80.0-100.0); MEAN CORPUSCULAR HEMOGLOBIN 23 pg (27-31); MEAN CORPUSCULAR HGB CONC 29 g/dl (33.0-37.0); MEAN PLATELET VOLUME 10.8 fl (7.4-10.4); PLATELET COUNT 326 K/mm3 (130-400); RED BLOOD COUNT 4.99 M/mm3 (4.10-5.30); REDCELL DISTRIBUTION WIDTH-CV 17.6 % (11.5-14.5)
[2021-07-13 11:48] LABS: CALCIUM 9.8 mg/dL (8.4-10.2); CREATININE, serum 0.97 mg/dL (0.57-1.11); POTASSIUM 4.3 mmol/L (3.5-4.5)
== END ==
LOC: COL.LAB 11:11
PROVIDERS: Psychiatry & Neurology Psychiatry
DX: I27.20 Pulmonary hypertension, unspecified (principal)

== ENCOUNTER → 2021-10-04 | Outpatient (CLI) | payer MEDICARE, MEDICAID | LOC: COL.PUL 11:17 | DX: I27.20 Pulmonary hypertension, unspecified (principal) | CPT/HCPCS: A9540; A9567 ==

== ENCOUNTER → 2021-10-05 | Outpatient (CLI) | payer MEDICARE, MEDICAID | LOC: COL.PUL 07:41 | DX: R06.09 Other forms of dyspnea (principal) ==